=== PATIENT | female | born 1995 | race Caucasian/White ===

== ENCOUNTER → 2024-06-25 | Outpatient (REF) | payer OTHER | LOC: M SFHCWAGY 16:45 | PROVIDERS: ATTEND Obstetrics & Gynecology | DX: O09.893 Supervision of other high risk pregnancies, third trimester (principal); O99.343 Other mental disorders complicating pregnancy, third trimester; F41.8 Other specified anxiety disorders; Z3A.36 36 weeks gestation of pregnancy ==

== ENCOUNTER → 2024-07-06 | Outpatient (CLI) | payer OTHER ==
[~2024-07-06] MED LIST: PRENTAB9 PO; TUMS500C PO; WELLTAB38 PO
[2024-07-06 17:32] LABS: HEMATOCRIT 39.5 % (36.0-47.0); HEMOGLOBIN 13.2 g/dl (12.0-15.5); MEAN CORPUSCULAR HEMOGLOBIN 30.7 pg (27.0-33.0); MEAN CORPUSCULAR HGB CONC 33.4 g/dl (32.0-36.5); MEAN CORPUSCULAR VOLUME 91.9 fl (80.0-96.0); PLATELET COUNT, AUTOMATED 255 10^3/uL (150-450)
[2024-07-06 17:50] LABS: TOTAL PROTEIN,RANDOM URINE 22.9 MG/DL (0.0-14.0)
[2024-07-06 17:53] LABS: URIC ACID 5.2 MG/DL (3.1-7.8)
[2024-07-06 17:55] LABS: LDH LACTATE DEHYDROGENASE 224 U/L (120-246)
[2024-07-06 17:57] LABS: ALT/SGPT 23 U/L (7.0-40); AST/SGOT 20 U/L (<34); BILIRUBIN,TOTAL 0.4 MG/DL (0.3-1.2); CREATININE FOR GFR 0.72 MG/DL (0.55-1.30); GLOMERULAR FILTRATION RATE > 90.0 (>60)
[2024-07-06 18:05] LABS: CREATININE,RANDOM URINE 244.7 MG/DL
== END ==
LOC: M PLALAB 16:06
PROVIDERS: ATTEND Nurse Practitioner Family
DX: O16.9 Unspecified maternal hypertension, unspecified trimester (principal); Z3A.00 Weeks of gestation of pregnancy not specified

== ENCOUNTER → 2024-12-17 | Outpatient (REF) | payer OTHER ==
[2024-12-21 15:59] LABS: HPV APTIMA Not Detected (Not Detected)
== END ==
LOC: M PLALAB 09:02
PROVIDERS: ATTEND Obstetrics & Gynecology
DX: Z12.4 Encounter for screening for malignant neoplasm of cervix (principal)
CPT/HCPCS: 87624; G0123

== ENCOUNTER → 2025-01-17 | Outpatient (REF) | payer OTHER | LOC: M LAB REF 11:44 | PROVIDERS: ATTEND Physician Assistant | DX: B34.9 Viral infection, unspecified (principal) ==